=== PATIENT | male | born 1990 | race African-American/Black ===

== ENCOUNTER 2021-03-27 21:16 | Inpatient (IN) | payer SELFPAY ==
[~2021-03-27] VITALS: Ht 165.1 cm; Wt 63.5 kg
[2021-03-27] MEDS ORDERED: FAMOTIDINE 20 MG/2 ML VIAL IV STA (21:39)
[2021-03-27] MEDS ORDERED: HALOPERIDOL LACTATE 5 MG/ML VIAL IV ONE (21:45)
[2021-03-27] MEDS ORDERED: SODIUM CHLORIDE 0.9% 1000ML 1,000 ML IV SCH ×3 (21:45→23:45)
[2021-03-27] MEDS ORDERED: FAMOTIDINE 20 MG/2 ML VIAL IV ONE (21:50)
[2021-03-27] MEDS ORDERED: SODIUM CHLORIDE 0.9% 1000ML 1,000 ML ONE ×3 (21:50→23:41)
[2021-03-27] MEDS ORDERED: HALOPERIDOL LACTATE 5 MG/ML VIAL ONE (21:50)
[2021-03-27] MEDS ORDERED: HYDROMORPHONE 1MG/1ML INJ IV PRN (22:45)
[2021-03-27] MEDS ORDERED: SODIUM CHLORIDE FLUSH 10 ML SYR INJ PRN (22:45)
[2021-03-27 23:29] LABS: BLOOD UREA NITROGEN 29 mg/dL (7-26); GLUCOSE 115 mg/dL (74-118); OSMOLALITY,SERUM 297 mOsm/kg (278-305); SODIUM 146 mmol/L (136-145)
[2021-03-27] MEDS ORDERED: CEFTRIAXONE 1 GM VIAL ONE (23:49)
[2021-03-28] VITALS (9 sets, daily range): BP systolic 99–122; BP diastolic 56–68
[2021-03-28] MEDS: CEFTRIAXONE 1 GM in SODIUM CHLORIDE 0.9% 50ML 50 ML IV SCH (00:21)
[2021-03-28] MEDS ORDERED: DEXTROSE 5%/0.45% SOD CHL 1,000 ML IV ONE (00:30)
[2021-03-28 06:24] LABS: BASOPHILS % 0.1 % (0.0-1.0); HEMATOCRIT 36.8 % (38.2-49.6); HEMOGLOBIN 12.4 g/dL (14.0-18.0); LYMPHOCYTES # (AUTO) 1.6 (1.0-3.2); LYMPHOCYTES % 9.3 % (18.0-39.1); MEAN CORPUSCULAR HEMOGLOBIN 29.9 pg (28-32); MEAN CORPUSCULAR HGB CONC 33.7 g/dL (31-35); MEAN CORPUSCULAR VOLUME 88.7 fL (81-99); MONOCYTES # (AUTO) 2.3 (0.2-0.8); MONOCYTES % 13.8 % (4.4-11.3); NEUTROPHILS # (AUTO) 12.6 (2.1-6.9); NEUTROPHILS % 76.3 % (38.7-80.0); PLATELET COUNT 236 x10e3/uL (140-360); RED BLOOD COUNT 4.15 x10e6/uL (4.3-5.7)
[2021-03-28 06:45] LABS: ALBUMIN/GLOBULIN RATIO 1.3 (0.8-2.0); ANION GAP 12.5 mmol/L (8-16); CALCIUM 8.8 mg/dL (8.4-10.2); CREATININE, SERUM 2.43 mg/dL (0.72-1.25); POTASSIUM 4.5 mmol/L (3.5-5.1)
[2021-03-28 07:11] LABS: LYMPHOCYTES % (MANUAL) 12 % (19-48); MONOCYTES % (MANUAL) 17 % (3.4-9.0); MYELOCYTES % (MANUAL) 1 % (0-0); NEUTROPHILS % (MANUAL) 70 % (40-74); PLATELET ESTIMATE ADEQUATE; PLATELET MORPHOLOGY COMMENT NORMAL; RBC MORPHOLOGY COMMENT NORMAL
[2021-03-28 07:26] LABS: PHOSPHORUS 4.1 MG/DL (2.3-4.7)
[2021-03-28] MEDS: ONDANSETRON HCL INJ 2MG/ML 2ML 2 MG/ML VIAL IV PRN ×3 (10:45→23:53)
[2021-03-28] MEDS ORDERED: SODIUM CHLORIDE 0.9% 1000ML 1,000 ML IV STA (11:11)
[2021-03-28] MEDS ORDERED: PANTOPRAZOLE SOD 40 MG TABEC PO SCH (11:15)
[2021-03-28] MEDS ORDERED: MAGNESIUM/ALUMINUM/SIMETHICONE 30 ML UDC PO PRN (11:15)
[2021-03-28 12:33] LABS: CLARITY,URINE CLEAR (CLEAR); COLOR,URINE YELLOW (YELLOW); KETONES,URINE NEGATIVE (NEGATIVE); LEUKOCYTE ESTERASE ,URINE SMALL (NEGATIVE); NITRITE,URINE NEGATIVE (NEGATIVE); PROTEIN,URINE DIPSTICK TRACE (NEGATIVE); URINE UROBILINOGEN 0.2 mg/dL (0.2 - 1)
[2021-03-28 12:46] LABS: BACTERIA,URINE RARE /HPF; MUCUS,URINE FEW (RARE); RBC,URINE 0-5 /HPF (0-5); RENAL EPITHELIAL CELLS,URINE FEW; WBC,URINE (MAN) 21-50 /HPF (0-5)
[2021-03-28] MEDS: METOCLOPRAMIDE HCL 10 MG/2ML VIAL IV SCH (17:03)
[2021-03-28] MEDS: SODIUM CHLORIDE 0.9% 1000ML 1,000 ML IV SCH (17:55)
[2021-03-29] VITALS (8 sets, daily range): BP systolic 108–127; BP diastolic 57–79
[2021-03-29] MEDS: METOCLOPRAMIDE HCL 10 MG/2ML VIAL IV SCH ×4 (00:49→18:00)
[2021-03-29] MEDS: SODIUM CHLORIDE 0.9% 1000ML 1,000 ML IV SCH ×2 (00:49→07:15)
[2021-03-29] MEDS: CEFTRIAXONE 1 GM in SODIUM CHLORIDE 0.9% 50ML 50 ML IV SCH (00:52)
[2021-03-29 06:00] LABS: BASOPHILS % 0.2 % (0.0-1.0); EOSINOPHILS % 0.1 % (0.0-6.0); HEMATOCRIT 32.7 % (38.2-49.6); HEMOGLOBIN 10.7 g/dL (14.0-18.0); LYMPHOCYTES # (AUTO) 2.2 (1.0-3.2); LYMPHOCYTES % 19.5 % (18.0-39.1); MEAN CORPUSCULAR HEMOGLOBIN 29.8 pg (28-32); MEAN CORPUSCULAR HGB CONC 32.7 g/dL (31-35); MEAN CORPUSCULAR VOLUME 91.1 fL (81-99); MONOCYTES # (AUTO) 1.4 (0.2-0.8); MONOCYTES % 12.1 % (4.4-11.3); NEUTROPHILS # (AUTO) 7.8 (2.1-6.9); NEUTROPHILS % 67.8 % (38.7-80.0); PLATELET COUNT 187 x10e3/uL (140-360); RED BLOOD COUNT 3.59 x10e6/uL (4.3-5.7); RED CELL DISTRIBUTION WIDTH 12.7 % (11.7-14.4)
[2021-03-29 06:24] LABS: AMYLASE 72 U/L (25-125); LIPASE 17 U/L (8-78)
[2021-03-29 06:44] LABS: ALANINE AMINOTRANSFERASE 13 IU/L (0-55); ALBUMIN 3.5 g/dL (3.5-5.0); ALBUMIN/GLOBULIN RATIO 1.5 (0.8-2.0); ALKALINE PHOSPHATASE 45 IU/L (40-150); ANION GAP 11.1 mmol/L (8-16); BLOOD UREA NITROGEN 15 mg/dL (7-26); BUN/CREATININE RATIO 15 (6-25); CALCIUM 8.2 mg/dL (8.4-10.2); CARBON DIOXIDE 24 mmol/L (22-29); CHLORIDE 111 mmol/L (98-107); CREATINE KINASE 193 IU/L (30-200); CREATININE, SERUM 0.97 mg/dL (0.72-1.25); EST GLOMERULAR FILTRATION RATE > 60 ML/MIN (60-); GLUCOSE 109 mg/dL (74-118); POTASSIUM 4.1 mmol/L (3.5-5.1); SODIUM 142 mmol/L (136-145)
[2021-03-29 18:22] LABS: FERRITIN 228.01 ng/mL (21.81-274.66)
== END 2021-03-29 22:11 | disposition home or self-care (01) | DRG 922 ==
LOC: FSED 21:25 → ERHOLD 22:44 → MED/SURG2 03-28 00:57
PROVIDERS: ADMIT Internal Medicine; ATTEND Internal Medicine
DX: T67.01XA Heatstroke and sunstroke, initial encounter (principal); N17.0 Acute kidney failure with tubular necrosis; N39.0 Urinary tract infection, site not specified; E87.0 Hyperosmolality and hypernatremia; F12.988 Cannabis use, unspecified with other cannabis-induced disorder; R11.2 Nausea with vomiting, unspecified; N20.0 Calculus of kidney; Z20.822 Contact with and (suspected) exposure to COVID-19; E86.0 Dehydration; I10 Essential (primary) hypertension; X30.XXXA Exposure to excessive natural heat, initial encounter; Z72.0 Tobacco use
CPT/HCPCS: 36415; 71046; 74176; 78227; 80053; 81001; 82150; 82550; 82607; 82728; 82746; 82947; 83540; 83690; 83735; 84100; 84295; 84466; 84520; 84550; 85025; 85045; 87086; 96361; 99284; A9537; J0696; J1630; J2405; J2765; J7030; U0002

== ENCOUNTER 2021-04-28 15:08 | Emergency (ER) | payer SELFPAY ==
[~2021-04-28] VITALS: Ht 167.6 cm; Wt 59.0 kg
[2021-04-28] MEDS ORDERED: SODIUM CHLORIDE 0.9% 1000ML 1,000 ML IV STA (15:26)
[2021-04-28] MEDS ORDERED: DIPHENHYDRAMINE HCL INJ 50 MG/ML VIAL IV ONE (15:30)
[2021-04-28] MEDS ORDERED: METOCLOPRAMIDE HCL 10 MG/2ML VIAL IV ONE (15:30)
[2021-04-28 15:38] LABS: BASOPHILS % 0.2 % (0.0-1.0); EOSINOPHILS % 0.1 % (0.0-6.0); HEMATOCRIT 46.3 % (38.2-49.6); HEMOGLOBIN 15.1 g/dL (14.0-18.0); LYMPHOCYTES # (AUTO) 1.5 (1.0-3.2); MEAN CORPUSCULAR HEMOGLOBIN 29.8 pg (28-32); MEAN CORPUSCULAR HGB CONC 32.6 g/dL (31-35); MEAN CORPUSCULAR VOLUME 91.3 fL (81-99); MONOCYTES # (AUTO) 1.5 (0.2-0.8); MONOCYTES % 10.7 % (4.4-11.3); NEUTROPHILS # (AUTO) 10.7 (2.1-6.9); NEUTROPHILS % 77.4 % (38.7-80.0); PLATELET COUNT 159 x10e3/uL (140-360); RED BLOOD COUNT 5.07 x10e6/uL (4.3-5.7); RED CELL DISTRIBUTION WIDTH 13.1 % (11.7-14.4)
[2021-04-28 16:03] LABS: ALBUMIN 5.7 g/dL (3.5-5.0); ALBUMIN/GLOBULIN RATIO 1.6 (0.8-2.0); CALCIUM 11.6 mg/dL (8.4-10.2); CREATININE, SERUM 1.55 mg/dL (0.72-1.25); MAGNESIUM 1.8 MG/DL (1.3-2.1)
== END 2021-04-28 18:15 | disposition home or self-care (01) ==
LOC: ER 15:46
DX: R11.11 Vomiting without nausea (principal); F12.90 Cannabis use, unspecified, uncomplicated
CPT/HCPCS: 36415; 80053; 83735; 85025; 99283; C9113; J1200; J2765; J7030

== ENCOUNTER 2021-04-29 23:27 | Emergency (ER) | payer SELFPAY ==
[~2021-04-29] VITALS: Ht 167.6 cm; Wt 59.0 kg
== END 2021-04-29 23:45 | disposition short-term general hospital (02) ==
LOC: ER 23:28
DX: R11.10 Vomiting, unspecified (principal)